=== PATIENT | female | born 1975 | race Caucasian/White ===

== ENCOUNTER 2017-12-23 09:34 | Emergency (ER) | payer OTHER, BC ==
[2017-12-23] MEDS: HYDROcodone/APAP 5/325MG 1 TAB TABLET PO ×2 (10:08)
[2017-12-23] MEDS: CYCLOBENZAPRINE 10 MG TABLET. PO ×2 (10:08)
[2017-12-23] MEDS: ONDANSETRON ODT 4 MG TAB.RAPDIS. PO ×2 (10:08)
== END 2017-12-23 11:13 | disposition home or self-care (01) ==
LOC: ER 09:34
DX: R51 Headache (principal); R42 Dizziness and giddiness; Z88.1 Allergy status to other antibiotic agents; V49.88XA Car occupant (driver) (passenger) injured in other specified transport accidents, initial encounter; Y93.89 Activity, other specified; Y99.8 Other external cause status; Y92.488 Other paved roadways as the place of occurrence of the external cause
CPT/HCPCS: 70450; 99284-25; Q0162